=== PATIENT | female | born 1930 | race Caucasian/White ===

== ENCOUNTER 2019-01-23 04:33 | Emergency (ER) | payer MEDICARE, BC ==
[~2019-01-23] VITALS: Ht 165.1 cm; Wt 90.9 kg
[2019-01-23 05:02] LABS: BASO % 0.2 % (0.0-1.0); EOS # 0.1 10^3/uL (0.0-0.5); HEMATOCRIT 38.9 % (36.0-47.0); HEMOGLOBIN 12.8 g/dl (12.0-15.5); LYMPH # 0.4 10^3/uL (1.5-5.0); LYMPH % 3.2 % (24.0-44.0); MEAN CORPUSCULAR HEMOGLOBIN 28.1 pg (27.0-33.0); MEAN CORPUSCULAR HGB CONC 32.9 g/dl (32.0-36.5); MEAN CORPUSCULAR VOLUME 85.5 fl (80.0-96.0); MONO # 0.3 10^3/uL (0.0-0.8); MONO % 2.3 % (0.0-5.0); NEUTROPHILS # 11.3 10^3/uL (1.5-8.5); NEUTROPHILS % 92.7 % (36.0-66.0); PLATELET COUNT, AUTOMATED 184 10^3/uL (150-450); RED BLOOD COUNT 4.55 10^6/uL (4.00-5.40); WHITE BLOOD COUNT 12.2 10^3/uL (4.0-10.0)
[2019-01-23] MEDS ORDERED: METF-791 PO (05:14)
[2019-01-23] MEDS ORDERED: SIMV40TA2 PO (05:14)
[2019-01-23] MEDS ORDERED: LOSA100T50 PO (05:14)
[2019-01-23] MEDS ORDERED: ASPI81TA85 PO (05:14)
[2019-01-23] MEDS ORDERED: METO1TAB87 PO (05:14)
[2019-01-23] MEDS ORDERED: SYMB16INH INH (05:14)
[2019-01-23] MEDS ORDERED: IPRA0.00 NEB (05:14)
[2019-01-23 05:27] LABS: BLOOD UREA NITROGEN 19 MG/DL (7-18); CALCIUM LEVEL 8.2 MG/DL (8.8-10.2); CARBON DIOXIDE LEVEL 23 MEQ/L (21-32); CHLORIDE LEVEL 108 MEQ/L (98-107); CK-MB VALUE MASS 1.3 NG/ML (<3.6); CPK CREATINE PHOSPHOKINASE 109 U/L (26-192); CREATININE FOR GFR 1.07 MG/DL (0.55-1.30); GLOMERULAR FILTRATION RATE 51.8 (>32); GLUCOSE, FASTING 272 MG/DL (70-100); MB/CK RELATIVE INDEX 1.19 (< OR =4); POTASSIUM SERUM 3.8 MEQ/L (3.5-5.1); SODIUM LEVEL 141 MEQ/L (136-145); TROPONIN I < 0.02 NG/ML (< 0.10)
[2019-01-23] MEDS ORDERED: IPRATROPIUM 0.5MG/ALBUTEROL 2.5MG INH SOL UD 3ML (DUONEB)(J7620) NEB ONE (06:00)
--- NOTE | 2019-01-23 06:44 | REP ---
Clinical: Cough and dyspnea . Comparison: None . Findings: The mediastinum and cardiac silhouette are stable and within normal limits for portable technique. The lung muniz demonstrate chronic-appearing changes and elevation to the right hemidiaphragm without acute consolidation, effusion, or pneumothorax. Skeletal structures are intact. Impression: Chronic-appearing changes suggested. If the patient remains symptomatic consider chest CT for further investigation. Electronically Signed by Eros Ashley MD 01/23/2019 06:35 A
[2019-01-23 06:53] LABS: NT-PRO BNP 213 PG/ML (<450)
[2019-01-23] MEDS ORDERED: ISOVUE-370 76% 100ML VIAL (Q9967) As Ordered ONE (06:58)
[2019-01-23] MEDS ORDERED: NS 500 ML IV ONE (07:00)
--- NOTE | 2019-01-23 07:22 | REPVR ---
PROCEDURE INFORMATION: Exam: CT Angiography Chest With Contrast Exam date and time: 01/23/2019 6:53 AM Clinical history: 88 years old, female; Shortness of breath; Additional info: SOB TECHNIQUE: Imaging protocol: Computed tomographic angiography of the chest with intravenous contrast. 3D rendering: MIP reconstructed images were created and reviewed. Radiation optimization: All CT scans at this facility use at least one of these dose optimization techniques: automated exposure control; mA and/or kV adjustment per patient size (includes targeted exams where dose is matched to clinical indication); or iterative reconstruction. Contrast material: ISO; Contrast volume: 75 ml; Contrast route: AC; COMPARISON: CR PORTABLE CHEST X-RAY 01/23/2019 5:38 AM FINDINGS: Pulmonary arteries: Normal. No pulmonary emboli. Great vessels off aortic arch: Other and left subclavian artery. Aorta: Unremarkable. No aortic aneurysm. No aortic dissection. Lungs: Consolidation in the right lung base. Groundglass densities in the right upper lobe. Medial lung base density on the left. Pleural space: Unremarkable. No pneumothorax. No pleural effusion. Heart: Cardiomegaly. Aortic valve. Coronary calcifications. Diaphragm: Elevation of right hemidiaphragm. Gallbladder and bile ducts: Gallstones. Lymph nodes: Unremarkable. No enlarged lymph nodes. 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 Diffuse demineralization of the bones with degenerative changes. Compression fracture of the superior endplate of T.12 without any retropulsion or prevertebral soft tissue swelling likely old. If clinically concerned further evaluation with MR is recommended. Soft tissues: Unremarkable. Other findings: Mild atherosclerosis. Atherosclerosis. IMPRESSION: Consolidation in the right lung base. Groundglass densities in the right upper lobe. Medial lung base density on the left. Findings may represent atelectasis versus pneumonia. No evidence of pulmonary embolism. Gallstones. Compression fracture of the superior endplate of T12 without any retropulsion or prevertebral soft tissue swelling likely old. If clinically concerned further evaluation with MR is recommended. Electronically signed by: Tonia Smith On 01/23/2019 07:22:43 AM
[2019-01-23] MEDS ORDERED: cefTRIAXone SOD 1 GM in D5W MINI-BAG PLUS 50 ML IV ONE (08:00)
[2019-01-23] MEDS ORDERED: AZITHROMYCIN INJ 500 MG, VIAL MATE ADAPTER 1 EACH in D5W 250 ML IV ONE (08:00)
[2019-01-23 10:07] VITALS: O2SAT 93
[2019-01-23] MEDS ORDERED: ZITHTAB PO (10:17)
[2019-01-23] MEDS ORDERED: CEFU50TA PO (10:17)
[2019-01-23 10:33] VITALS: BP 108/63
--- NOTE | 2019-01-23 17:42 | ECGEPIP ---
[facility] - ED Test Date: 2019-01-23 Pat Name: GUSTAVO HERMOSILLO Department: Room: - Gender: Female Dukey Rider: DAVID : [id number] Requested By: RITA Devlin Order Number: [id number] Reading MD: Keli Tian Measurements Intervals Cliff Rate: 132 P: 249 MT: 123 QRS: -3 QRSD: 102 T: 74 QT: 341 QTc: 506 Interpretive Statements JUNCTIONAL TACHYCARDIA WITH OCCASIONAL SUPRAVENTRICULAR PREMATURE COMPLEXES POSSIBLE ANTERIOR MYOCARDIAL INFARCTION, PROBABLY OLD MODERATE T-WAVE ABNORMALITY, CONSIDER ISCHEMIA NO PRIOR Electronically Signed on 01-23-2019 17:42:01 EDT by Keli Tian
== END 2019-01-23 10:44 | disposition home or self-care (01) ==
LOC: M ED 04:33
DX: J18.9 Pneumonia, unspecified organism (principal); J98.01 Acute bronchospasm; K80.20 Calculus of gallbladder without cholecystitis without obstruction; Z87.81 Personal history of (healed) traumatic fracture; J45.909 Unspecified asthma, uncomplicated; I10 Essential (primary) hypertension; E11.9 Type 2 diabetes mellitus without complications; Z79.82 Long term (current) use of aspirin; Z79.84 Long term (current) use of oral hypoglycemic drugs; Z79.899 Other long term (current) drug therapy
CPT/HCPCS: 36600; 71045; 71275; 80048; 82550; 82553; 82803; 83880; 84484; 85025; 93005; 93041; 94640; 96365; 96367; 99285; J0456; J0696; Q9967